=== PATIENT | male | born 1990 | race Caucasian/White ===

== ENCOUNTER 2024-04-09 16:18 | Emergency (ER) | payer OTHER ==
[~2024-04-09] VITALS: Ht 177.8 cm; Wt 81.6 kg
[2024-04-09 16:50] VITALS: BP 155/108; PULSE 87; RESP 17; TEMP 98.6; O2SAT 98
[2024-04-09] MEDS: LIDOCAINE MPF 1% 10 MG/ML VIAL INJ ONE (17:19)
[2024-04-09] MEDS ORDERED: ACET500T99 PO (17:43)
[2024-04-09 17:48] VITALS: BP 124/79; PULSE 69; RESP 18; TEMP 98.6; O2SAT 99
== END 2024-04-09 17:48 | disposition home or self-care (01) ==
LOC: MED 16:18
DX: S61.412A Laceration without foreign body of left hand, initial encounter (principal); Z79.899 Other long term (current) drug therapy; W45.8XXA Other foreign body or object entering through skin, initial encounter; Y93.89 Activity, other specified; Y92.89 Other specified places as the place of occurrence of the external cause; Y99.8 Other external cause status
CPT/HCPCS: 12002; 99282; J2001; 90715

== ENCOUNTER 2024-04-17 11:03 | Emergency (ER) | payer OTHER ==
[~2024-04-17] VITALS: Ht 177.8 cm; Wt 86.4 kg
[~2024-04-17 11:03] MED LIST: ACET500T99 PO
[2024-04-17 11:06] VITALS: BP 111/76; PULSE 85; RESP 16; TEMP 98; O2SAT 96
[2024-04-17 11:28] VITALS: BP 111/76; PULSE 85; RESP 16; TEMP 98; O2SAT 96
== END 2024-04-17 11:28 | disposition home or self-care (01) ==
LOC: MED 11:03
DX: S61.412D Laceration without foreign body of left hand, subsequent encounter (principal); Z48.00 Encounter for change or removal of nonsurgical wound dressing; Z79.899 Other long term (current) drug therapy; X58.XXXD Exposure to other specified factors, subsequent encounter
CPT/HCPCS: 99281